=== PATIENT | male | born 1955 | race Caucasian/White ===

== ENCOUNTER 2016-10-31 17:47 | Inpatient (IN) | payer MEDICAID ==
[~2016-10-31] VITALS: Ht 182.9 cm; Wt 75.7 kg
[2016-10-31 19:08] LABS: Basophils # (auto) 0 uL; Basophils % (auto) 0.2 % (0.0-2.0); Eosinophils # (auto) 0.1 uL; Eosinophils % (auto) 0.7 % (0.0-7.0); Hemoglobin 16.7 g/dL (13.5-17.5); Lymphocytes % (auto) 10.1 % (10.0-50.0); Mean Corpuscular Hgb Conc. 34.1 g/dL (32.0-36.0); Mean Corpuscular Volume 96.9 fL (80.0-100.0); Mean Platelet Volume 7.3 fL (7.4-10.4); Monocytes % (auto) 10.6 % (0.0-12.0); Neutrophils # (auto) 7.4 uL; Neutrophils % (auto) 78.4 % (37.0-80.0); Platelet Count (auto) 341 10^3/uL (140-450); Red Cell Distribution Width 13.8 % (11.6-16.0); White Blood Cell 9.5 10^3/uL (4.4-10.8)
[2016-10-31 19:45] LABS: Albumin 2.7 g/dL (3.4-5.0); Alkaline Phosphatase 60 U/L (45-117); Anion Gap 13 (5-15); Aspartate Aminotransferase 18 U/L (15-37); BUN/Creatinine Ratio 60.1; Bilirubin, Total 1.3 mg/dL (0.2-1.0); Carbon Dioxide 30 mmol/L (21-32); Chloride 86 mmol/L (98-107); GFR African American 57 mL/min; GFR Non-African American 47 mL/min; Glucose 104 mg/dL (74-106); Sodium 129 mmol/L (136-145); Total Protein 6.4 g/dL (6.4-8.2)
[2016-10-31 19:57] LABS: Blood Urea Nitrogen 95 mg/dL (7-18); Potassium 2.9 mmol/L (3.5-5.1)
[2016-10-31] MEDS ORDERED: THIAMINE INJ 100 MG, MULTIPLE VITAMIN 10 ML, FOLIC ACID 1 MG, MAGNESIUM SULF SDV 50% 8 ... IV ONE ×5 (20:30)
[2016-10-31] MEDS ORDERED: POTASSIUM CHL 20 Meq TABLET PO ONE (20:30)
[2016-10-31 20:53] LABS: Basophils # (auto) 0 uL; Basophils % (auto) 0.4 % (0.0-2.0); Eosinophils # (auto) 0.1 uL; Eosinophils % (auto) 0.6 % (0.0-7.0); Hematocrit 48.7 % (41.0-53.0); Hemoglobin 16.2 g/dL (13.5-17.5); Lymphocytes # (auto) 0.9 uL; Lymphocytes % (auto) 8.2 % (10.0-50.0); Mean Corpuscular Hemoglobin 32.8 pg (28.0-32.0); Mean Corpuscular Hgb Conc. 33.4 g/dL (32.0-36.0); Mean Corpuscular Volume 98.5 fL (80.0-100.0); Mean Platelet Volume 7.2 fL (7.4-10.4); Monocytes # (auto) 0.8 uL; Monocytes % (auto) 6.9 % (0.0-12.0); Neutrophils # (auto) 9.5 uL; Neutrophils % (auto) 83.9 % (37.0-80.0); Platelet Count (auto) 330 10^3/uL (140-450); White Blood Cell 11.4 10^3/uL (4.4-10.8)
[2016-10-31 21:22] LABS: Potassium 3.1 mmol/L (3.5-5.1)
[2016-10-31 21:25] LABS: BUN/Creatinine Ratio 55.9; Bilirubin, Total 1.1 mg/dL (0.2-1.0); Total Protein 6.3 g/dL (6.4-8.2)
[2016-10-31] MEDS ORDERED: NITROGLYCERIN 0.4 MG SL TAB SL PRN (22:00)
[2016-10-31] MEDS ORDERED: MORPHINE SULF INJ 2 MG/ML SYRINGE 1ML IV PRN (22:00)
[2016-10-31] MEDS ORDERED: chlordiazePOXIDE HCL 25 MG CAP PO PRN (22:00)
[2016-10-31] MEDS: SODIUM CHLOR 0.9% PF (SALINE LOCK) 10ML VIAL IV SCH (22:00)
[2016-10-31] MEDS ORDERED: SODIUM CHLORIDE 0.9% 1,000 ML IV SCH (22:00)
[2016-10-31] MEDS ORDERED: LORazepam 0.5 MG TAB PO PRN (22:00)
[2016-10-31] MEDS ORDERED: SODIUM CHLORIDE 0.9% 1,000 ML IV ONE (23:45)
[2016-10-31] MEDS ORDERED: HETASTARCH 500 ML IV ONE (23:45)
[2016-11-01 05:00] VITALS: BP 93/57
[2016-11-01] MEDS: SODIUM CHLOR 0.9% PF (SALINE LOCK) 10ML VIAL IV SCH ×2 (05:12→14:02)
[2016-11-01 06:22] LABS: Basophils # (auto) 0 uL; Basophils % (auto) 0.2 % (0.0-2.0); Eosinophils # (auto) 0.1 uL; Eosinophils % (auto) 1.2 % (0.0-7.0); Hematocrit 41.5 % (41.0-53.0); Lymphocytes # (auto) 1.4 uL; Lymphocytes % (auto) 17.4 % (10.0-50.0); Mean Corpuscular Hemoglobin 33.3 pg (28.0-32.0); Mean Corpuscular Hgb Conc. 33.7 g/dL (32.0-36.0); Mean Corpuscular Volume 98.7 fL (80.0-100.0); Mean Platelet Volume 7.4 fL (7.4-10.4); Monocytes % (auto) 12.9 % (0.0-12.0); Neutrophils # (auto) 5.3 uL; Neutrophils % (auto) 68.3 % (37.0-80.0); Platelet Count (auto) 290 10^3/uL (140-450); Red Cell Distribution Width 13.7 % (11.6-16.0); White Blood Cell 7.8 10^3/uL (4.4-10.8)
[2016-11-01 06:48] LABS: Calcium 7.5 mg/dL (8.5-10.1)
[2016-11-01 09:00] VITALS: BP 120/74
[2016-11-01] MEDS ORDERED: MAGNESIUM OXIDE 400 MG TAB PO ONE (10:45)
[2016-11-01] MEDS ORDERED: POTASSIUM CHL 20 Meq TABLET PO ONE (10:45)
[2016-11-01] MEDS ORDERED: SODIUM CHLORIDE 0.9% 1,000 ML IV SCH (11:00)
[2016-11-01 13:00] VITALS: BP 101/69
[2016-11-01] MEDS ORDERED: ASPirin 325 MG TAB PO ONE (13:15)
== END 2016-11-01 15:20 | disposition home or self-care (01) | DRG 460 ==
LOC: EDBD 17:47 → ER 17:47 → TELE 17:48 → TELE-EAST 23:56
PROVIDERS: ADMIT Emergency Medicine; ATTEND Emergency Medicine
DX: N17.9 Acute kidney failure, unspecified (principal); E44.1 Mild protein-calorie malnutrition; E87.8 Other disorders of electrolyte and fluid balance, not elsewhere classified; E86.0 Dehydration; I48.2 Chronic atrial fibrillation; I12.9 Hypertensive chronic kidney disease with stage 1 through stage 4 chronic kidney disease, or unspecified chronic kidney disease; E88.09 Other disorders of plasma-protein metabolism, not elsewhere classified; E87.1 Hypo-osmolality and hyponatremia; E87.6 Hypokalemia; F10.20 Alcohol dependence, uncomplicated; N18.9 Chronic kidney disease, unspecified; F41.9 Anxiety disorder, unspecified; Z68.22 Body mass index [BMI] 22.0-22.9, adult
CPT/HCPCS: 36415; 71010; 80048; 80053; 80320; 83605; 83735; 84484; 85025; 93005; 93306; 96361; 96365; 96367